=== PATIENT | female | born 1960 ===

== ENCOUNTER 2016-06-29 22:29 | Observation (INO) | payer MEDICARE, MEDICAID ==
[2016-06-29 22:29] VITALS: BMI 22.2
[2016-06-30] MEDS ORDERED: Sodium Chloride 0.9% 1,000 ML IV STA (00:22)
--- NOTE | 2016-06-30 00:25 | ED PDOC ---
HPI: Abdomen Time Seen by Provider: 06/29/16 23:51 Chief Complaint (Nursing): GI Problem Past Medical History Vital Signs: Last Vital Signs Temp 99.9 F H 06/29/16 23:14 Pulse 126 H 06/29/16 23:14 Resp 17 06/29/16 23:14 BP 132/79 06/29/16 23:14 Pulse Ox 98 06/29/16 23:14 - Medical History PMH: Depression, Fractures (LEFT ARM), Gastritis, HTN, End Stage Renal Disease, Chronic Kidney Disease - Surgical History Surgical History: Endoscopy - Immunization History Hx Influenza Vaccination: No Hx Pneumococcal Vaccination: No - Home Medications Home Medications: Ambulatory Orders Medication Instructions Recorded Omeprazole 40 mg PO DAILY 07/24/13 Sevelamer Carbonate [Renvela] 2,400 mg PO TID 07/24/13 Trazodone Hydrochloride [Trazodone 50 mg PO HS 07/24/13 HCl] Escitalopram [Lexapro] 20 mg PO HS 07/08/14 clonazePAM [Klonopin] 0.5 mg PO BID PRN 07/08/14 - Allergies Allergies/Adverse Reactions: Allergies Allergy/AdvReac Type Severity Reaction Status Date / Time No Known Allergies Allergy Unverified 06/29/16 23:18 - ECG O2 Sat by Pulse Oximetry: 98
--- NOTE | 2016-06-30 00:31 | ED PDOC ---
HPI:Nausea, Vomiting, Diarrhea Time Seen by Provider: 06/29/16 23:00 Chief Complaint (Nursing): GI Problem Chief Complaint (Provider): Vomiting History Per: Patient History/Exam Limitations: no limitations Onset/Duration Of Symptoms: Hrs (earlier today) Current Symptoms Are (Timing): Still Present Quality Of Discomfort: Aching Associated Symptoms: Fever, Chills, Nausea, Vomiting, Urinary Symptoms ( straining for urine), Other (cough) Additional Complaint(s): 55 year old female presents to ED with complaints of vomiting since earlier today after dialysis and has a past medical history of HTN. (+) fever, body pain , chills, nausea, cough, and straining for urine. States that vomiting occurs after heavy coughing. PCP: Aron Mendez Past Medical History Reviewed: Historical Data, Nursing Documentation, Vital Signs Vital Signs: Last Vital Signs Temp 99.9 F H 06/29/16 23:14 Pulse 126 H 06/29/16 23:14 Resp 17 06/29/16 23:14 BP 132/79 06/29/16 23:14 Pulse Ox 98 06/29/16 23:14 - Medical History PMH: Depression, Fractures (LEFT ARM), Gastritis, HTN, End Stage Renal Disease, Chronic Kidney Disease - Surgical History Surgical History: Endoscopy Other surgeries: Hysterectomy - Family History Family History: States: No Known Family Hx - Social History Current smoker - smoking cessation education provided: No Ex-Smoker (has not smoked in the last 12 months): No Alcohol: None Drugs: Denies - Immunization History Hx Influenza Vaccination: No Hx Pneumococcal Vaccination: No - Home Medications Home Medications: Ambulatory Orders Medication Instructions Recorded Omeprazole 40 mg PO DAILY 07/24/13 Sevelamer Carbonate [Renvela] 2,400 mg PO TID 07/24/13 Trazodone Hydrochloride [Trazodone 50 mg PO HS 07/24/13 HCl] Escitalopram [Lexapro] 20 mg PO HS 07/08/14 clonazePAM [Klonopin] 0.5 mg PO BID PRN 07/08/14 Ondansetron [Zofran] 4 mg PO Q6H PRN #5 tab 06/30/16 - Allergies Allergies/Adverse Reactions: Allergies Allergy/AdvReac Type Severity Reaction Status Date / Time No Known Allergies Allergy Unverified 06/29/16 23:18 Review of Systems ROS Statement: Except As Marked, All Systems Reviewed And Found Negative Constitutional: Positive for: Fever, Other (overall body pain) Eyes: Positive for: Vision Change Respiratory: Positive for: Cough Gastrointestinal: Positive for: Nausea, Vomiting Genitourinary Female: Positive for: Other (straining for urine) Physical Exam - Reviewed Nursing Documentation Reviewed: Yes Vital Signs Reviewed: Yes - Laboratory Results Result Diagrams: 06/30/16 00:40 06/30/16 00:40 - ECG O2 Sat by Pulse Oximetry: 98 (RA) Pulse Ox Interpretation: Normal Medical Decision Making Medical Decision Makin Initial impression: Initial plan: * Labs * Pepcid 20mg IVP * NS IV * Zofran Inj 4mg IV * BCx * Urine C&S * Influenza A B * UA * Re-eval 0317 CT FINDINGS: Limitations: Lack of intravenous contrast. Lower thorax: Minimal atelectasis/scarring. Few calcified granulomas. Probable small hiatal hernia. ABDOMEN: Liver: Small hepatic calcification. Gallbladder and bile ducts: No calcified stones. No ductal dilation. Pancreas: Unremarkable. No ductal dilation. Spleen: No splenomegaly. Adrenals: No mass. Kidneys and ureters: Atrophy of kidneys, LEFT greater than RIGHT. RIGHT renal cyst. No renal calculi. No hydronephrosis. Stomach and bowel: No definite mural thickening. No obstruction. Appendix: Normal caliber. No inflammation. PELVIS: Bladder: Collapsed bladder, limiting evaluation. No stones. Reproductive: Hysterectomy. ABDOMEN and PELVIS: Intraperitoneal space: No significant fluid collection. No free air. Bones/joints: Degenerative changes of spine. Soft tissues: Unremarkable. Vasculature: Mild atherosclerotic disease of aorta. No abdominal aortic aneurysm. Lymph nodes: No pathologically enlarged lymph nodes. IMPRESSION: 1. No definite acute intraabdominal abnormality. 2. Incidental/non-acute findings are described above 0408 PO Trial 0420 Patient tolerated PO. Upon re-evaluation, patient is feeling much better and is stable for discharge. Patient is medically stable and ready for discharge. Counseling has been provided and patient is in agreement. Return if symptoms persist or acutely worsen. reviewed imaging and labs w patient and need for oupt followup repeat vitals improved pt stable for dc. Scribe Attestation: Documented by Lyn Fair acting as a scribe for Mackenzie Guerrero. Scribe Attestation: All medical record entries made by the Scribe were at my direction and personally dictated by me. I have reviewed the chart and agree that the record accurately reflects my personal performance of the history, physical exam, medical decision making, and the department course for this patient. I have also personally directed, reviewed, and agree with the discharge instructions and disposition. Disposition - Clinical Impression Clinical Impression: Gastroenteritis - Patient ED Disposition Is Patient to be Admitted: No Counseled Patient/Family Regarding: Studies Performed, Diagnosis, Need For Followup - Disposition Disposition: Routine/Home Disposition Time: 04:19 Condition: IMPROVED
[2016-06-30 00:49] LABS: BASO % 0.3 % (0.0-2.0); EOS % 0.4 % (0.0-4.0); LYMPH # 0.3 K/uL (1.0-4.3); LYMPH % 4.1 % (20.0-40.0); MEAN CORPUSCULAR HEMOGLOBIN 29.8 pg (27.0-31.0); MEAN CORPUSCULAR HGB CONC 33.5 g/dL (33.0-37.0); MEAN PLATELET VOLUME 7.7 fl (7.2-11.7); MONO # 0.4 K/uL (0.0-0.8); MONO % 5.3 % (0.0-10.0); NEUT # 7.4 K/uL (1.8-7.0); NEUT % 89.9 % (50.0-75.0); PLATELET COUNT 148 K/uL (130-400); RED CELL DISTRIBUTION WIDTH 15.1 % (11.5-14.5); WHITE BLOOD COUNT 8.2 K/uL (4.8-10.8)
[2016-06-30 00:58] LABS: ALB/GLOB RATIO 1.1 (1.0-2.1); BILIRUBIN,TOTAL 0.7 mg/dl (0.2-1.3); POTASSIUM 4.7 MMOL/L (3.6-5.0); TOTAL PROTEIN 8.2 G/DL (6.3-8.2)
[2016-06-30 02:21] LABS: NEUTROPHIL 90 % (42-75); REACTIVE LYMPHOCYTES 1 % (0-0); TOTAL CELLS COUNTED 100
[2016-06-30 02:22] LABS: STOMATOCYTES SLIGHT
[2016-06-30 02:47] LABS: RBC URINE 16 /hpf (0-3); URINE BILIRUBIN NEGATIVE (NEGATIVE); URINE BLOOD SMALL (NEGATIVE); URINE COLOR STRAW (YELLOW); URINE GLUCOSE (UA) 150 mg/dL (Normal); URINE KETONE NEGATIVE (NEGATIVE); URINE LEUKOCYTE ESTERASE NEG Leu/uL (Negative); URINE PROTEIN 100 mg/dL (NEGATIVE); URINE UROBILINOGEN 0.2-1.0 mg/dL (0.2-1.0); WBC URINE < 1 /hpf (0-5)
--- NOTE | 2016-06-30 03:18 | CT ---
EXAM: CT Abdomen and Pelvis Without Intravenous Contrast CLINICAL HISTORY: 55 years old, female; Pain; Abdominal pain; Generalized; Prior surgery; Surgery date: 6+ months; Surgery type: Hysterectomy; Additional info: Abd pain TECHNIQUE: Axial computed tomography images of the abdomen and pelvis without intravenous contrast. This CT exam was performed using one or more of the following dose reduction techniques: automated exposure control, adjustment of the mA and/or kV according to patient size, and/or use of iterative reconstruction technique. Coronal and sagittal reformatted images were created and reviewed. COMPARISON: No relevant prior studies available. FINDINGS: Limitations: Lack of intravenous contrast. Lower thorax: Minimal atelectasis/scarring. Few calcified granulomas. Probable small hiatal hernia. ABDOMEN: Liver: Small hepatic calcification. Gallbladder and bile ducts: No calcified stones. No ductal dilation. Pancreas: Unremarkable. No ductal dilation. Spleen: No splenomegaly. Adrenals: No mass. Kidneys and ureters: Atrophy of kidneys, LEFT greater than RIGHT. RIGHT renal cyst. No renal calculi. No hydronephrosis. Stomach and bowel: No definite mural thickening. No obstruction. Appendix: Normal caliber. No inflammation. PELVIS: Bladder: Collapsed bladder, limiting evaluation. No stones. Reproductive: Hysterectomy. ABDOMEN and PELVIS: Intraperitoneal space: No significant fluid collection. No free air. Bones/joints: Degenerative changes of spine. Soft tissues: Unremarkable. Vasculature: Mild atherosclerotic disease of aorta. No abdominal aortic aneurysm. Lymph nodes: No pathologically enlarged lymph nodes. IMPRESSION: 1. No definite acute intraabdominal abnormality. 2. Incidental/non-acute findings are described above.
[2016-06-30 04:24] VITALS: BP 118/63; PULSE 99; RESP 16
[2016-06-30 04:25] VITALS: TEMP 99.1
[2016-06-30 05:20] VITALS: O2SAT 98
== END 2016-06-30 04:17 | disposition home or self-care (01) ==
LOC: H.ER 22:29 → H.EROBSV 06-30 01:00
PROVIDERS: ADMIT Emergency Medicine; ATTEND Emergency Medicine
DX: K52.9 Noninfective gastroenteritis and colitis, unspecified (principal); I12.0 Hypertensive chronic kidney disease with stage 5 chronic kidney disease or end stage renal disease; N18.6 End stage renal disease; K29.70 Gastritis, unspecified, without bleeding; F32.9 Major depressive disorder, single episode, unspecified; Z99.2 Dependence on renal dialysis
CPT/HCPCS: 74176; 80053; 81003; 85025; 87040; 87086; 87804; 96374; 99282; G0378; J2405; J7040

== ENCOUNTER 2018-02-05 16:05 | Observation (INO) | payer MEDICARE, MEDICAID ==
[2018-02-05 16:05] VITALS: BMI 22.2
--- NOTE | 2018-02-05 16:53 | ED PDOC ---
HPI: General Adult Time Seen by Provider: 02/05/18 16:27 Chief Complaint (Nursing): Abdominal Pain Chief Complaint (Provider): Missed dialysis History Per: Patient History/Exam Limitations: no limitations Additional Complaint(s): 57 year old female, with a past medical history of chronic renal failure, presents to the ED after missing dialysis for 2 weeks due to being in [place]. Patient was seen by her PMD who did outpatient bloodwork which showed elevated potassium levels. Denies chest pain, palpitations, and SOB. PMD: [employer] Past Medical History Reviewed: Historical Data, Nursing Documentation, Vital Signs Vital Signs: Last Vital Signs Temp 97.8 F 02/05/18 16:11 Pulse 84 02/05/18 16:11 Resp 18 02/05/18 16:11 BP 143/73 02/05/18 16:11 Pulse Ox 100 02/05/18 16:11 - Medical History PMH: Depression, Diabetes, Fractures (LEFT ARM), Gastritis, HTN, End Stage Renal Disease (dialysis dependent), Chronic Kidney Disease - Surgical History Surgical History: No Surg Hx, Endoscopy - Family History Family History: States: Unknown Family Hx - Immunization History Hx Influenza Vaccination: No Hx Pneumococcal Vaccination: No - Home Medications Home Medications: Ambulatory Orders Medication Instructions Recorded Sevelamer Carbonate [Renvela] 2,400 mg PO TID 07/24/13 Escitalopram [Lexapro] 20 mg PO HS 07/08/14 clonazePAM [Klonopin] 0.5 mg PO DAILY PRN 07/08/14 B Complex W-C No.20/Folic Acid 1 tab PO DAILY 02/05/18 [Renal Caps Softgel] Cranberry 1 tab PO DAILY 02/05/18 Multivitamin [Multi-Vitamin Daily] 1 tab PO DAILY 02/05/18 [id number] Ethyl Esters 1 GM 2 gm PO Q12 02/05/18 [Lovaza] traZODone [Desyrel] 50 mg PO HS 02/05/18 - Allergies Allergies/Adverse Reactions: Allergies Allergy/AdvReac Type Severity Reaction Status Date / Time No Known Allergies Allergy Unverified 06/29/16 23:18 Review of Systems ROS Statement: Except As Marked, All Systems Reviewed And Found Negative Cardiovascular: Negative for: Chest Pain, Palpitations Respiratory: Negative for: Shortness of Breath Physical Exam - Reviewed Nursing Documentation Reviewed: Yes Vital Signs Reviewed: Yes - Physical Exam Appears: Positive for: Non-toxic, No Acute Distress Head Exam: Positive for: ATRAUMATIC, NORMOCEPHALIC Skin: Positive for: Normal Color, Warm, Dry Eye Exam: Positive for: Normal appearance Neck: Positive for: Normal, Painless ROM Cardiovascular/Chest: Positive for: Regular Rate, Rhythm Respiratory: Positive for: Normal Breath Sounds. Negative for: Wheezing, Respiratory Distress Gastrointestinal/Abdominal: Positive for: Normal Exam, Soft. Negative for: Tenderness Extremity: Positive for: Normal ROM Neurologic/Psych: Positive for: Alert, Oriented. Negative for: Motor/Sensory Deficits - Laboratory Results Result Diagrams: 02/05/18 17:13 02/05/18 17:13 - ECG O2 Sat by Pulse Oximetry: 100 (RA) Pulse Ox Interpretation: Normal Medical Decision Making Medical Decision Making: Initial Plan: --ECG --CMP --CBC Scribe Attestation: Documented by Colten Guidry acting as a scribe for Temo Cyr MD. Provider Scribe Attestation: All medical record entries made by the Scribe were at my direction and personally dictated by me. I have reviewed the chart and agree that the record accurately reflects my personal performance of the history, physical exam, medical decision making, and the department course for this patient. I have also personally directed, reviewed, and agree with the discharge instructions and disposition. Disposition - Clinical Impression Clinical Impression: Renal failure, acute on chronic - Patient ED Disposition Is Patient to be Admitted: Yes - Disposition Disposition Time: 18:41 Condition: FAIR Forms: [facility] (Ma[place]) - Pt Status Changed To: Hospital Disposition Of: Observation - POA Present On Arrival: None
[2018-02-05 17:17] LABS: BASO % 0.6 % (0.0-2.0); EOS # 0.2 K/uL (0.0-0.7); EOS % 2.6 % (0.0-4.0); HEMOGLOBIN 9.3 g/dL (12.0-16.0); LYMPH % 15.3 % (20.0-40.0); MEAN CELL VOLUME 88.4 fl (81.0-99.0); MEAN PLATELET VOLUME 8.3 fl (7.2-11.7); MONO # 0.4 K/uL (0.0-0.8); MONO % 6.2 % (0.0-10.0); NEUT % 75.3 % (50.0-75.0); RBC 3.09 Mil/uL (3.80-5.20); RED CELL DISTRIBUTION WIDTH 14.9 % (11.5-14.5); WHITE BLOOD COUNT 6.6 K/uL (4.8-10.8)
[2018-02-05 17:37] LABS: ALB/GLOB RATIO 1.2 (1.0-2.1); ALBUMIN 4.2 g/dL (3.5-5.0); CALCIUM 8.3 mg/dL (8.4-10.2)
--- NOTE | 2018-02-06 07:19 | CP.PCM.CON ---
History of Present Illness - History of Present Illness History of Present Illness: this patient whole is 57 years of age female who went to [place] and she did not go for dialysis for 2 weeks and she came back uremic to the emergency room complaining of weakness nausea for which emergency dialysis was completed over night. Patient known with end stage renal disease for number of years with history of hypertension and secondary hyperparathyroidism and hyperphosphatemia Patient known to be none compliance intermittently past medical history End stage renal disease, hypertension, hyperphosphatemia, secondary hyperparathyroidism, anemia social history not contributory Review of Systems - Constitutional Constitutional: Anorexia, Malaise - EENT Ears: absent: Ear Pain Nose/Mouth/Throat: absent: Epistaxis, Post Nasal Drip - Cardiovascular Cardiovascular: Dyspnea on Exertion. absent: Chest Pain, Edema, Leg Edema - Respiratory Respiratory: absent: Cough, Dyspnea, Hemoptysis - Gastrointestinal Gastrointestinal: absent: Abdominal Pain, Coffee Ground Emesis, Nausea - Genitourinary Genitourinary: Nocturia - Musculoskeletal Musculoskeletal: Muscle Weakness. absent: Deformity - Neurological Neurological: absent: Abnormal Gait, Confusion, Focal Weakness - Psychiatric Psychiatric: absent: Confusion, Memory Loss - Endocrine Endocrine: Fatigue - Hematologic/Lymphatic Hematologic: absent: Easy Bleeding Past Patient History - Past Medical History & Family History Past Medical History?: Yes - Past Social History Smoking Status: Never Smoked - CARDIAC Hx Hypertension: Yes - PULMONARY Hx Respiratory Disorders: No Other/Comment: DRY COUGH AT PRESENT - NEUROLOGICAL Hx Neurological Disorder: No - HEENT Other/Comment: wears glasses for reading - RENAL Hx Chronic Kidney Disease: Yes Hx Dialysis: Yes - ENDOCRINE/METABOLIC Hx Endocrine Disorders: No - HEMATOLOGICAL/ONCOLOGICAL Hx Cancer: Yes (LEFT BREAST) Hx Chemotherapy: Yes (1992) - INTEGUMENTARY Hx Dermatological Problems: No - MUSCULOSKELETAL/RHEUMATOLOGICAL Hx Falls: No Hx Fractures: Yes (LEFT ARM) - GASTROINTESTINAL Hx Gastritis: Yes - GENITOURINARY/GYNECOLOGICAL Hx Genitourinary Disorders: No - PSYCHIATRIC Hx Depression: Yes Hx Substance Use: No - SURGICAL HISTORY Hx Surgeries: Yes Hx Arteriovenous Shunt: Yes (FISTULA LEFT ARM) Hx Section: Yes (TWO) Hx Mastectomy: Yes (LEFT 1992) Hx Open Reduction Internal Fixation: Yes (LEFT ARM) - ANESTHESIA Hx Anesthesia: Yes Hx Anesthesia Reactions: No Hx Malignant Hyperthermia: No Has any member of the family had a problem w/ anesthesia?: No Meds Allergies/Adverse Reactions: Allergies Allergy/AdvReac Type Severity Reaction Status Date / Time No Known Allergies Allergy Unverified 06/29/16 23:18 - Medications Medications: Current Medications Clonazepam (Klonopin) 0.5 mg PO DAILY PRN PRN Reason: Anxiety Last Admin: 02/05/18 23:27 Dose: 0.5 mg Escitalopram Oxalate (Lexapro) 20 mg PO HS JAMES Last Admin: 02/05/18 23:27 Dose: 20 mg Fuleu-7-[id number] Ethyl Esters (Lovaza) 2 gm PO Q12 JAMES Sevelamer Carbonate (Renvela) 2,400 mg PO TID JAMES Trazodone HCl (Desyrel) 50 mg PO HS [facility] Vitamin B Complex/Vit C/Folic Acid (Nephro-Bree) 1 tab PO DAILY [facility] Physical Exam - Constitutional Appears: No Acute Distress - Eye Exam Eye Exam: Conjunctival injection - ENT Exam ENT Exam: Mucous Membranes Moist - Neck Exam Neck exam: Negative for: Lymphadenopathy - Respiratory Exam Respiratory Exam: NORMAL BREATHING PATTERN. absent: Chest Wall Tenderness, Rhonchi - Cardiovascular Exam Cardiovascular Exam: REGULAR RHYTHM. absent: Gallop, JVD, Rubs - GI/Abdominal Exam GI & Abdominal Exam: absent: Guarding, Normal Bowel Sounds - Extremities Exam Extremities exam: Negative for: calf tenderness - Back Exam Back exam: absent: CVA tenderness (L), CVA tenderness (R) - Neurological Exam Neurological exam: Alert - Psychiatric Exam Psychiatric exam: Normal Affect Results - Vital Signs Recent Vital Signs: Last Vital Signs Temp 98.6 F 02/06/18 06:00 Pulse 87 02/06/18 06:00 Resp 16 02/06/18 06:00 BP 126/63 02/06/18 06:00 Pulse Ox 100 02/06/18 06:00 - Labs Result Diagrams: 02/05/18 17:13 02/05/18 17:13 Labs: Laboratory Results - last 24 hr 02/05/18 02/05/18 17:13 17:13 WBC 6.6 RBC 3.09 L Hgb 9.3 L D Hct 27.3 L MCV 88.4 MCH 30.0 MCHC 34.0 RDW 14.9 H Plt Count 149 MPV 8.3 Neut % (Auto) 75.3 H Lymph % (Auto) 15.3 L [place] % (Auto) 6.2 Eos % (Auto) 2.6 Baso % (Auto) 0.6 Neut # (Auto) 5.0 Lymph # (Auto) 1.0 [place] # (Auto) 0.4 Eos # (Auto) 0.2 Baso # (Auto) 0.0 Sodium 139 Potassium 4.9 Chloride 107 D Carbon Dioxide 15 L Anion Gap 22 H BUN 128 H* D Creatinine 14.2 H* Est GFR ( Amer) 3 Est GFR (Non-Af Amer) 3 Random Glucose 114 H Calcium 8.3 L Total Bilirubin 0.3 AST 16 ALT 24 Alkaline Phosphatase 92 Total Protein 7.6 Albumin 4.2 Globulin 3.4 Albumin/Globulin Ratio 1.2 Assessment & Plan (1) ESRD (end stage renal disease) on dialysis Assessment and Plan: end stage renal disease Patient missed her dialysis because she was traveling for 2 weeks and she came to the emergency room with uremia require emergent dialysis last night completed earlier this morning History of hyperphosphatemia History of secondary hyperparathyroidism Anemia of chronic kidney disease The plan Patient will need short extra hemodialysis today to catch up with her uremia EPO Phosphorus binder Sensipar Status: Acute
[2018-02-06] MEDS ORDERED: Epoetin Alfa 20000 UNIT/ML Inj SC SCH (09:00)
[2018-02-06] MEDS ORDERED: Patient's Own Med (Multivitamin [Multi-Vitamin Daily] 1 TAB) PO SCH (09:00)
[2018-02-06] MEDS ORDERED: [UNRECOGNIZED DRUG - REMARK] PO SCH (09:00)
[2018-02-06] MEDS: Omega-3-Acid Ethyl Esters 1 GM Cap PO SCH ×2 (09:28→21:18)
[2018-02-06] MEDS: Multivitamin Vitamin B Complex (Nephro-Vite) Tab PO SCH (09:29)
--- NOTE | 2018-02-06 09:50 | RAD ---
Date of service: 02/06/2018 PROCEDURE: CHEST RADIOGRAPH, 1 VIEW HISTORY: esrd COMPARISON: 01/06/2014 FINDINGS: LUNGS: Clear. PLEURA: No pneumothorax or pleural fluid seen. CARDIOVASCULAR: No aortic atherosclerotic calcification present. Normal. OSSEOUS STRUCTURES: No significant abnormalities. VISUALIZED UPPER ABDOMEN: Normal. OTHER FINDINGS: None. IMPRESSION: No active disease.
[2018-02-06 10:37] LABS: CALCIUM 8.9 mg/dL (8.4-10.2)
--- NOTE | 2018-02-06 11:47 | HP ---
HISTORY OF PRESENT ILLNESS: Ms. Armen Cornejo is a 57-year-old female who has a history of end-stage renal disease, on hemodialysis. She recently went to [place] recall and did not get her dialysis and was admitted via the emergency room because of weakness, nausea, and required the emergency dialysis. PAST MEDICAL HISTORY: Hypertension, hyperparathyroidism, hyperphosphatemia, and anemia. FAMILY HISTORY: Noncontributory. SOCIAL HISTORY: She denies smoking, alcohol use. REVIEW OF SYSTEMS: Essentially unremarkable. PHYSICAL EXAMINATION: GENERAL: The patient is alert, oriented, received hemodialysis last night and presently appears to be much more comfortable. VITAL SIGNS: Blood pressure 126/63 with a pulse of 87, respiratory rate is 16. She is febrile. O2 sat 100% on room air. SKIN: Shows fair turgor. HEENT: Pupils are equal, reactive to light and accommodation. Mouth shows fair hygiene. NECK: JVP flat. LUNGS: Clear. HEART: Regular. No murmurs or gallops. ABDOMEN: Soft, nontender, no organomegaly. EXTREMITIES: Mild edema. No cyanosis. CENTRAL NERVOUS SYSTEM: Exam grossly intact. LABORATORY DATA: WBC 6.6, hemoglobin 9.3, platelet count 149,000. Sodium 139, potassium 4.9, BUN of 128, creatinine 14.2, CO2 content 15, glucose 114. EKG, official report pending. Chest x-ray, results pending. IMPRESSION: Acute on chronic renal failure, history of hypertension. PLAN: Hemodialysis, Nephrology evaluation. We will continue therapy as per Nephrology. Bob Obregon MD
--- NOTE | 2018-02-06 12:07 | CARD ---
APPROVED REPORT Date of service: 02/05/2018 EKG Measurement Heart [id number] <Conclusion> Normal sinus rhythm Normal ECG
[2018-02-06 12:42] LABS: HEPATITIS B SURFACE AG Negative (NEGATIVE)
[2018-02-06 12:47] LABS: HEPATITIS B CORE AB NEGATIVE (NEGATIVE)
[2018-02-07 08:13] VITALS: BP 130/61; PULSE 98; RESP 20; TEMP 97.5; O2SAT 100
[2018-02-07] MEDS: Multivitamin Vitamin B Complex (Nephro-Vite) Tab PO SCH (08:45)
[2018-02-07] MEDS: Omega-3-Acid Ethyl Esters 1 GM Cap PO SCH (08:45)
--- NOTE | 2018-02-07 09:22 | CP.PCM.DIS ---
Provider - Provider Date of Admission: 02/05/18 18:40 Attending physician: Bob Obregon MD Consults: 02/05/18 18:40 Physician Consult Stat Comment: Consulting Provider: Carloz Beard Consulting Physician: Carloz Beard Reason for Consult: Acute on chronic renal failure Time Spent in preparation of Discharge (in minutes): 30 Diagnosis - Discharge Diagnosis (1) ESRD (end stage renal disease) on dialysis Status: Acute (2) Renal failure, acute on chronic Status: Acute (3) Hypertension Status: Acute Hospital Course - Lab Results Lab Results: Most Recent Lab Values WBC 6.6 K/uL (4.8-10.8) 02/05/18 17:13 RBC 3.09 Mil/uL (3.80-5.20) L 02/05/18 17:13 Hgb 9.3 g/dL (12.0-16.0) L D 02/05/18 17:13 Hct 27.3 % (34.0-47.0) L 02/05/18 17:13 MCV 88.4 fl (81.0-99.0) 02/05/18 17:13 MCH 30.0 pg (27.0-31.0) 02/05/18 17:13 MCHC 34.0 g/dL (33.0-37.0) 02/05/18 17:13 RDW 14.9 % (11.5-14.5) H 02/05/18 17:13 Plt Count 149 K/uL (130-400) 02/05/18 17:13 MPV 8.3 fl (7.2-11.7) 02/05/18 17:13 Neut % (Auto) 75.3 % (50.0-75.0) H 02/05/18 17:13 Lymph % (Auto) 15.3 % (20.0-40.0) L 02/05/18 17:13 [facility] % (Auto) 6.2 % (0.0-10.0) 02/05/18 17:13 Eos % (Auto) 2.6 % (0.0-4.0) 02/05/18 17:13 Baso % (Auto) 0.6 % (0.0-2.0) 02/05/18 17:13 Neut # (Auto) 5.0 K/uL (1.8-7.0) 02/05/18 17:13 Lymph # (Auto) 1.0 K/uL (1.0-4.3) 02/05/18 17:13 [facility] # (Auto) 0.4 K/uL (0.0-0.8) 02/05/18 17:13 Eos # (Auto) 0.2 K/uL (0.0-0.7) 02/05/18 17:13 Baso # (Auto) 0.0 K/uL (0.0-0.2) 02/05/18 17:13 Sodium 136 mmol/l (132-148) 02/06/18 10:22 Potassium 4.2 MMOL/L (3.6-5.0) 02/06/18 10:22 Chloride 97 mmol/L (98-107) L 02/06/18 10:22 Carbon Dioxide 24 mmol/L (22-30) 02/06/18 10:22 Anion Gap 19 (10-20) 02/06/18 10:22 BUN 46 mg/dl (7-17) H 02/06/18 10:22 Creatinine 7.6 mg/dl (0.7-1.2) H* D 02/06/18 10:22 Est GFR ( Amer) 7 02/06/18 10:22 Est GFR (Non-Af Amer) 6 02/06/18 10:22 Random Glucose 143 mg/dL (65-105) H 02/06/18 10:22 Calcium 8.9 mg/dL (8.4-10.2) 02/06/18 10:22 Total Bilirubin 0.3 mg/dl (0.2-1.3) 02/05/18 17:13 AST 16 U/L (14-36) 02/05/18 17:13 ALT 24 U/L (9-52) 02/05/18 17:13 Alkaline Phosphatase 92 U/L (38-126) 02/05/18 17:13 Total Protein 7.6 G/DL (6.3-8.2) 02/05/18 17:13 Albumin 4.2 g/dL (3.5-5.0) 02/05/18 17:13 Globulin 3.4 gm/dL (2.2-3.9) 02/05/18 17:13 Albumin/Globulin Ratio 1.2 (1.0-2.1) 02/05/18 17:13 Hep Bs Antigen Negative (NEGATIVE) 02/05/18 04:25 Hep Bs Antibody Positive (NEGATIVE) 02/05/18 23:25 Hep B Core IgM Ab Negative (NEGATIVE) 02/05/18 04:25 - Hospital Course Hospital Course: clinically improved with dialysis Discharge Exam - Head Exam Head Exam: ATRAUMATIC, NORMOCEPHALIC - Eye Exam Eye Exam: EOMI, Normal appearance, PERRL Pupil Exam: NORMAL ACCOMODATION, PERRL - GI/Abdominal Exam GI & Abdominal Exam: Normal Bowel Sounds - Rectal Exam Rectal Exam: NORMAL INSPECTION - Neurological Exam Neurological exam: Alert, CN II-XII Intact, Normal Gait, Oriented x3, Reflexes Normal - Psychiatric Exam Psychiatric exam: Normal Affect, Normal Mood - Skin Skin Exam: Dry, Intact, Normal Color, Warm Discharge Plan - Follow Up Plan Condition: FAIR Disposition: HOME/ ROUTINE Patient education suggested?: Yes Instructions: Kidney Failure (DC), End Stage Kidney Disease (DC) Additional Instructions: CONTINUE DIALYSIS T-THURS-SAT Referrals: Carloz Beard MD [Staff Provider] - Shabana Mendez MD [Family Provider] -
== END 2018-02-07 12:02 | disposition home or self-care (01) ==
LOC: H.ER 16:05 → H.ERHOLD 18:40 → H.TEL 21:28
PROVIDERS: ADMIT Internal Medicine Pulmonary Disease; ATTEND Internal Medicine Pulmonary Disease
DX: N17.9 Acute kidney failure, unspecified (principal); I12.0 Hypertensive chronic kidney disease with stage 5 chronic kidney disease or end stage renal disease; N18.6 End stage renal disease; D63.1 Anemia in chronic kidney disease; E11.22 Type 2 diabetes mellitus with diabetic chronic kidney disease; N25.81 Secondary hyperparathyroidism of renal origin; Z91.15 Patient's noncompliance with renal dialysis; Z99.2 Dependence on renal dialysis; K29.70 Gastritis, unspecified, without bleeding; F32.9 Major depressive disorder, single episode, unspecified
CPT/HCPCS: 36415; 71045; 80048; 80053; 85025; 86705; 86706; 87340; 93005; 99285; G0378; J2405; Q4081